=== PATIENT | female | born 1960 | race Hispanic/Latino ===

== ENCOUNTER → 2018-03-02 | Outpatient (CLI) | payer BC | LOC: MAMMO 11:51 | PROVIDERS: ATTEND Family Medicine | DX: Z12.31 Encounter for screening mammogram for malignant neoplasm of breast (principal) | CPT/HCPCS: 77067 ==

== ENCOUNTER → 2019-04-24 | Outpatient (CLI) | payer BC ==
--- NOTE | 2019-04-24 14:31 | Diagnostic Imaging Report ---
EXAMINATION: HIP LEFT 2-3 VW (+/- PELVIS) INDICATION: Left hip pain COMPARISON: None FINDINGS: AP and frog-leg views of the left hip were obtained. Status post left total hip replacement. The acetabular hardware component appears to be rotated more superolaterally than expected. In the absence of immediate postoperative images, it is difficult to ascertain whether this is the intended alignment or reflective of hardware loosening. No acute fracture. Surgical clips in the pelvis. Surgical skin singh overlie the medial thigh. IMPRESSION: No acute osseous injury. Status post left total hip replacement. Acetabular hardware component appears somewhat rotated more superolaterally than expected. Recommend correlation with immediate postoperative radiographs, if available to determine if there has been interval change in alignment. Signed by: Joaquín Gautam MD on 04/24/2019 2:28 PM
== END ==
LOC: MAMMO 12:56
PROVIDERS: ATTEND Family Medicine
DX: Z12.31 Encounter for screening mammogram for malignant neoplasm of breast (principal)
CPT/HCPCS: 77067

== ENCOUNTER → 2019-09-07 | Outpatient (CLI) | payer BC ==
--- NOTE | 2019-09-07 15:22 | Diagnostic Imaging Report ---
Exam: Left knee 2 views Clinical History: Pain Findings: There is no evidence of acute fracture or malalignment. The articular joints are well-preserved. The soft tissue is unremarkable. Impression: No radiographic evidence of acute osseous injury. Signed by: Dr. Johnny Cortes MD on 09/07/2019 3:19 PM
== END ==
LOC: MRI 13:48
PROVIDERS: ATTEND Internal Medicine Endocrinology, Diabetes & Metabolism
DX: M25.562 Pain in left knee (principal); M25.512 Pain in left shoulder

== ENCOUNTER → 2019-09-18 | Outpatient (CLI) | payer BC ==
[~2019-09-18] MED LIST: LORAZEPAM INJ 2 MG/ML VIAL ONE
--- NOTE | 2019-09-18 14:40 | Diagnostic Imaging Report ---
TECHNIQUE: Magnetic resonance imaging of the left SHOULDER was performed WITHOUT injected contrast. COMPARISON: None available. HISTORY: left shoulder pain FINDINGS: MUSCLES AND TENDONS: Rotator Cuff: Tendons: Tendinosis of the supraspinatus. Muscles: No focal muscle atrophy. Biceps Tendon: The long head of the biceps tendon is within the bicipital groove. Intra-articular tendinosis. GLENOHUMERAL JOINT: Glenoid Labrum: No displaced tear. Articular Cartilage: No focal defect. AC JOINT AND ACROMION: Mild hypertrophic degenerative changes of the acromioclavicular joint. Subacromial spurring. BONE: No acute fracture. SOFT TISSUES: Subacromial subdeltoid bursal fluid. IMPRESSION: Supraspinatus tendinosis without tear. Subacromial spurring with subacromial subdeltoid bursal fluid/bursitis. Long head biceps intra-articular tendinosis. Signed by: Dr. Otis Belle M.D. on 09/18/2019 2:37 PM
== END ==
LOC: MRI 11:57
PROVIDERS: ATTEND Internal Medicine Endocrinology, Diabetes & Metabolism
DX: M25.512 Pain in left shoulder (principal); R53.1 Weakness; M75.52 Bursitis of left shoulder; M75.22 Bicipital tendinitis, left shoulder
CPT/HCPCS: 73221; J2060

== ENCOUNTER 2022-06-13 14:04 | Emergency (ER) | payer BC ==
[~2022-06-13] VITALS: Ht 152.4 cm; Wt 65.3 kg
== END 2022-06-13 15:00 | disposition home or self-care (01) ==
LOC: ER 14:43
DX: R50.9 Fever, unspecified (principal); M25.562 Pain in left knee; I10 Essential (primary) hypertension; E11.9 Type 2 diabetes mellitus without complications; E78.5 Hyperlipidemia, unspecified
CPT/HCPCS: 99282

== ENCOUNTER 2023-05-17 12:58 | Outpatient (RCR) | payer BC | END 2023-05-18 | LOC: PT 12:58 | PROVIDERS: ATTEND Family Medicine | DX: Z47.89 Encounter for other orthopedic aftercare (principal); M25.562 Pain in left knee ==

== ENCOUNTER 2023-06-08 11:00 | Outpatient (RCR) | payer BC | END 2023-06-17 | LOC: PT 11:00 | PROVIDERS: ATTEND Family Medicine | DX: Z47.89 Encounter for other orthopedic aftercare (principal); M25.562 Pain in left knee ==